=== PATIENT | male | born 1955 | race Hispanic/Latino ===

== ENCOUNTER 2022-03-13 22:16 | Observation (INO) | payer OTHER ==
[~2022-03-13] VITALS: Ht 180.3 cm; Wt 94.6 kg
[2022-03-13] MEDS ORDERED: ACETAMINOPHEN 500 MG TABLET ONE (22:34)
[2022-03-13] MEDS ORDERED: ACETAMINOPHEN 325 MG TAB PO ONE (23:00)
[2022-03-13 23:24] LABS: BASOPHILS % (AUTO) 0.3 % (0.0-5.0); EOSINOPHILS % (AUTO) 0.7 % (0.0-8.0); HEMATOCRIT 38.9 % (42-54); LYMPHOCYTES % (AUTO) 13.9 % (21.0-51.0); MEAN CORPUSCULAR HGB CONC 33.7 g/dL (32.0-36.0); MEAN CORPUSCULAR VOLUME 86.1 fL (79-99); NEUTROPHILS % (AUTO) 71.8 % (40.0-77.0); PLATELET COUNT (AUTO) 136 K/uL (130-400); RED BLOOD CELL COUNT(AUTO) 4.52 MIL/uL (4.50-6.20); RED CELL DISTRIBUTION WIDTH 12.8 % (11.0-15.5); WHITE BLOOD COUNT (AUTO) 9.2 K/uL (4.8-10.8)
[2022-03-13] MEDS ORDERED: BENZONATATE 100 MG CAPSULE PO ONE (23:30)
[2022-03-13] MEDS ORDERED: SOLU-MEDROL 125MG VIAL IVP ONE (23:30)
[2022-03-13] MEDS ORDERED: IPRATROPIUM/ALBUTEROL SULFATE 3 ML SOLUTION IH ONE (23:30)
[2022-03-13 23:35] LABS: POTASSIUM 3.8 mmol/L (3.5-5.1)
[2022-03-13 23:41] LABS: ALBUMIN 3.2 g/dL (3.5-5.0); MAGNESIUM 1.8 mg/dL (1.80-2.40); TOTAL PROTEIN, SERUM 7.1 g/dL (6.0-8.3)
[2022-03-14] MEDS ORDERED: MAGNESIUM 2GM PREMIX 50ML 50 ML IV PRN (02:00)
[2022-03-14] MEDS ORDERED: DEXTROSE 50%-WATER 50 ML DISP.SYRIN IV PRN (02:00)
[2022-03-14] MEDS ORDERED: POTASSIUM CHLORIDE 20MEQ/100ML 100 ML IV PRN (02:00)
[2022-03-14] MEDS ORDERED: GLUCAGON 1MG KIT 1 MG ML IM PRN (02:00)
[2022-03-14] MEDS ORDERED: POTASSIUM CHLORIDE 10% ELIXIR 20 MEQ/15 ML UDCUP PO PRN (02:00)
[2022-03-14] MEDS ORDERED: LIDOCAINE HCL-MPF 1% 2ML VIAL IV PRN (02:00)
[2022-03-14] MEDS ORDERED: FUROSEMIDE 40MG VIAL IV STA (02:03)
[2022-03-14 03:20] VITALS: BP 114/73
[2022-03-14] MEDS ORDERED: ONDANSETRON 4MG INJ IVP PRN (03:30)
[2022-03-14] MEDS ORDERED: DOCUSATE SODIUM 100 MG CAP PO PRN (03:30)
[2022-03-14] MEDS ORDERED: TEMAZEPAM 15 MG CAPSULE PO PRN (03:30)
[2022-03-14] MEDS ORDERED: LACTULOSE 20 GM/30 ML UDCUP PO PRN (03:30)
[2022-03-14] MEDS ORDERED: CLONIDINE HCL 0.1 MG TABLET PO PRN (03:30)
[2022-03-14] MEDS ORDERED: ALBUTEROL 0.083% 2.5 MG/3 ML INH IH PRN (03:30)
[2022-03-14] MEDS ORDERED: ACETAMINOPHEN 325 MG TAB PO PRN (03:30)
[2022-03-14] MEDS ORDERED: ACETAMINOPHEN 650 MG SUPPOSITORY RC PRN (03:30)
[2022-03-14] MEDS ORDERED: LABETALOL 20MG SYG IV PRN (03:30)
[2022-03-14] MEDS ORDERED: HYDRALAZINE 20MG/ML VIAL IV PRN (03:30)
[2022-03-14] MEDS: DOXYCYCLINE 100MG+NS 250ML IV SCH ×3 (04:21→19:27)
[2022-03-14] MEDS: CEFTRIAXONE 1G VIAL IVP SCH ×2 (04:21→05:31)
[2022-03-14] MEDS ORDERED: METOPROLOL SUCCINATE 50 MG TAB.SR.24H PO ONE (05:00)
[2022-03-14] MEDS ORDERED: ROSU5TAB12 PO (05:26)
[2022-03-14] MEDS ORDERED: ALEN35TA53 PO (05:26)
[2022-03-14] MEDS ORDERED: APIX5TAB PO (05:26)
[2022-03-14] MEDS ORDERED: METO-408 PO (05:26)
[2022-03-14] MEDS ORDERED: DILT-116 PO (05:26)
[2022-03-14] MEDS: BENZONATATE 100 MG CAPSULE PO SCH ×3 (05:59→19:26)
[2022-03-14] MEDS: INSULIN HUMULIN R 100 UNIT/ML 3ML SQ SCH ×3 (06:06→19:33)
[2022-03-14 06:13] LABS: BASOPHILS % (AUTO) 0.1 % (0.0-5.0); HEMATOCRIT 40.5 % (42-54); LYMPHOCYTES % (AUTO) 8.4 % (21.0-51.0); MEAN CORPUSCULAR HEMOGLOBIN 28.9 pg (27.0-33.0); MEAN CORPUSCULAR HGB CONC 32.8 g/dL (32.0-36.0); MONOCYTES % (AUTO) 1.6 % (3.0-13.0); NEUTROPHILS % (AUTO) 89.3 % (40.0-77.0); PLATELET COUNT (AUTO) 116 K/uL (130-400); RED CELL DISTRIBUTION WIDTH 12.8 % (11.0-15.5); WHITE BLOOD COUNT (AUTO) 8.2 K/uL (4.8-10.8)
[2022-03-14 06:30] LABS: HEMOGLOBIN A1C 6.5 % (4.0-6.0)
[2022-03-14 06:47] LABS: ALBUMIN 3.4 g/dL (3.5-5.0); CREATININE 1.1 mg/dL (0.5-1.5); POTASSIUM 4.1 mmol/L (3.5-5.1); THYROID STIMULATING HORMONE 0.75 uIU/mL (0.36-3.74); TOTAL PROTEIN, SERUM 7.5 g/dL (6.0-8.3)
[2022-03-14] MEDS: IPRATROPIUM 0.5 MG/2.5 ML INH IH SCH ×4 (06:56→23:05)
[2022-03-14 08:00] VITALS: BP 129/86
[2022-03-14] MEDS: GUAIFENESIN-DM 200/20 MG 10 ML PO PRN ×2 (08:00→14:26)
[2022-03-14] MEDS: DILTIAZEM 180MG SR CAP PO SCH (08:01)
[2022-03-14] MEDS: APIXABAN 5 MG TABLET PO SCH ×2 (08:02→19:27)
[2022-03-14 12:00] VITALS: BP 130/76
[2022-03-14 16:00] VITALS: BP 124/85
[2022-03-14] MEDS ORDERED: FUROSEMIDE 40MG VIAL IV ONE (18:30)
[2022-03-14] MEDS ORDERED: ATORVASTATIN 40 MG TABLET ONE (19:22)
[2022-03-14] MEDS: ATORVASTATIN 40 MG TABLET PO SCH (19:27)
[2022-03-14 20:19] VITALS: BP 115/76
[2022-03-14] MEDS ORDERED: FUROSEMIDE 40MG VIAL IV SCH (21:00)
[2022-03-14 23:43] VITALS: BP 142/50
[2022-03-15] MEDS ORDERED: METOPROLOL SUCCINATE 50 MG TAB.SR.24H PO STA (02:45)
[2022-03-15] MEDS ORDERED: METOPROLOL SUCCINATE 50 MG TAB.SR.24H PO ONE (02:51)
[2022-03-15] MEDS: GUAIFENESIN-DM 200/20 MG 10 ML PO PRN (02:53)
[2022-03-15 05:11] LABS: BASOPHILS % (AUTO) 0.1 % (0.0-5.0); HEMATOCRIT 39.3 % (42-54); LYMPHOCYTES % (AUTO) 7.7 % (21.0-51.0); MEAN CORPUSCULAR HEMOGLOBIN 28.6 pg (27.0-33.0); MEAN CORPUSCULAR HGB CONC 33.6 g/dL (32.0-36.0); MEAN CORPUSCULAR VOLUME 85.2 fL (79-99); MONOCYTES % (AUTO) 6.8 % (3.0-13.0); NEUTROPHILS % (AUTO) 84.6 % (40.0-77.0); PLATELET COUNT (AUTO) 139 K/uL (130-400); RED BLOOD CELL COUNT(AUTO) 4.61 MIL/uL (4.50-6.20); RED CELL DISTRIBUTION WIDTH 12.4 % (11.0-15.5); WHITE BLOOD COUNT (AUTO) 14.3 K/uL (4.8-10.8)
[2022-03-15] MEDS: BENZONATATE 100 MG CAPSULE PO SCH ×3 (05:33→19:26)
[2022-03-15 05:35] LABS: CREATININE 1.2 mg/dL (0.5-1.5); PHOSPHORUS 4.2 mg/dL (2.5-4.9); POTASSIUM 3.7 mmol/L (3.5-5.1)
[2022-03-15] MEDS: INSULIN HUMULIN R 100 UNIT/ML 3ML SQ SCH ×4 (05:38→20:06)
[2022-03-15] MEDS: FUROSEMIDE 40MG VIAL IV SCH ×2 (06:32→16:46)
[2022-03-15] MEDS: IPRATROPIUM 0.5 MG/2.5 ML INH IH SCH ×4 (06:44→23:18)
[2022-03-15] MEDS ORDERED: LEVOFLOXACIN 500 MG/D5W 100 ML 100 ML IV SCH (07:30)
[2022-03-15] MEDS: DOXYCYCLINE 100MG+NS 250ML IV SCH ×2 (07:48→19:26)
[2022-03-15] MEDS: DILTIAZEM 180MG SR CAP PO SCH (07:50)
[2022-03-15] MEDS: APIXABAN 5 MG TABLET PO SCH ×2 (07:50→19:26)
[2022-03-15 07:56] VITALS: BP 137/84
[2022-03-15] MEDS ORDERED: CEFTRIAXONE 1G VIAL IVP SCH (09:00)
[2022-03-15 11:57] VITALS: BP 135/78
[2022-03-15] MEDS ORDERED: GABAPENTIN 100 MG CAPSULE ONE ×2 (14:05→19:22)
[2022-03-15 16:00] VITALS: BP 120/91
[2022-03-15] MEDS: MEROPENEM 1 GM VIAL IVPB SCH ×2 (16:47→23:49)
[2022-03-15] MEDS ORDERED: GUAIFENESIN 600 MG TABLET.ER PO PRN (18:00)
[2022-03-15] MEDS: GABAPENTIN 100 MG CAPSULE PO SCH (19:26)
[2022-03-15] MEDS: METOPROLOL SUCCINATE 50 MG TAB.SR.24H PO SCH ×2 (19:26→19:27)
[2022-03-15] MEDS: ATORVASTATIN 40 MG TABLET PO SCH (19:26)
[2022-03-15 20:25] VITALS: BP 98/56
[2022-03-16 00:03] VITALS: BP 125/82
[2022-03-16 04:42] LABS: HEMATOCRIT 39.1 % (42-54); MEAN CORPUSCULAR HEMOGLOBIN 28.7 pg (27.0-33.0); MEAN CORPUSCULAR VOLUME 87.1 fL (79-99); RED BLOOD CELL COUNT(AUTO) 4.49 MIL/uL (4.50-6.20); RED CELL DISTRIBUTION WIDTH 12.6 % (11.0-15.5); WHITE BLOOD COUNT (AUTO) 9.6 K/uL (4.8-10.8)
[2022-03-16 04:58] LABS: CREATININE 1.1 mg/dL (0.5-1.5); MAGNESIUM 2.1 mg/dL (1.80-2.40); PHOSPHORUS 3.3 mg/dL (2.5-4.9); POTASSIUM 3.4 mmol/L (3.5-5.1)
[2022-03-16 05:01] VITALS: BP 113/77
[2022-03-16] MEDS: BENZONATATE 100 MG CAPSULE PO SCH ×2 (05:43→15:09)
[2022-03-16] MEDS: KCL 20 MEQ ERTAB PO PRN ×2 (05:43→08:57)
[2022-03-16] MEDS: FUROSEMIDE 40MG VIAL IV SCH (05:43)
[2022-03-16] MEDS: INSULIN HUMULIN R 100 UNIT/ML 3ML SQ SCH ×2 (05:45→11:30)
[2022-03-16] MEDS: IPRATROPIUM 0.5 MG/2.5 ML INH IH SCH ×2 (06:52→11:18)
[2022-03-16 07:34] VITALS: BP 129/63
[2022-03-16 08:53] VITALS: BP 129/63
[2022-03-16] MEDS: APIXABAN 5 MG TABLET PO SCH (08:55)
[2022-03-16] MEDS: GABAPENTIN 100 MG CAPSULE PO SCH (08:55)
[2022-03-16] MEDS: DOXYCYCLINE 100MG+NS 250ML IV SCH (08:56)
[2022-03-16] MEDS: DILTIAZEM 180MG SR CAP PO SCH (08:56)
[2022-03-16] MEDS: MEROPENEM 1 GM VIAL IVPB SCH (08:57)
[2022-03-16 11:11] VITALS: BP 114/63
[2022-03-16] MEDS ORDERED: FURO40TA7 PO (15:19)
[2022-03-16] MEDS ORDERED: AMOX-426 PO (15:20)
[2022-03-16] MEDS ORDERED: SACU1TAB PO (15:58)
== END 2022-03-16 19:15 | disposition home or self-care (01) ==
LOC: EDH 22:16 → EDHIP 03-14 01:44 → 4DH 03-14 03:06
PROVIDERS: ADMIT Internal Medicine Critical Care Medicine; ATTEND Internal Medicine Critical Care Medicine
DX: A41.9 Sepsis, unspecified organism (principal); Z20.822 Contact with and (suspected) exposure to COVID-19; B96.7 Clostridium perfringens [C. perfringens] as the cause of diseases classified elsewhere; J18.9 Pneumonia, unspecified organism; I11.0 Hypertensive heart disease with heart failure; I50.9 Heart failure, unspecified; J06.9 Acute upper respiratory infection, unspecified; R50.9 Fever, unspecified; E80.6 Other disorders of bilirubin metabolism; E87.1 Hypo-osmolality and hyponatremia; E87.6 Hypokalemia; R73.9 Hyperglycemia, unspecified; I48.20 Chronic atrial fibrillation, unspecified; E78.00 Pure hypercholesterolemia, unspecified; R77.8 Other specified abnormalities of plasma proteins; Z79.899 Other long term (current) drug therapy; Z98.890 Other specified postprocedural states; Z79.01 Long term (current) use of anticoagulants
CPT/HCPCS: 36415; 71045; 76700; 80048; 80053; 82948; 83036; 83605; 83735; 83880; 84100; 84145; 84443; 84484; 85025; 85027; 85378; 87040; 87635; 87804; 87880; 93005; 93306; 93356; 94640; 94664; 96365; 96366; 96367; 96368; 96375; 96376; C9803; G0378; J0696; J1815; J1940; J1956; J2185; J2930; J3490

== ENCOUNTER 2022-07-28 07:14 | Observation (INO) | payer OTHER ==
[~2022-07-28] VITALS: Ht 180.3 cm; Wt 89.6 kg
[~2022-07-28 07:14] MED LIST: ALEN35TA53 PO; AMOX-426 PO; APIX5TAB PO; FURO40TA7 PO; METO-408 PO; ROSU5TAB12 PO; SACU1TAB PO
[2022-07-28] MEDS ORDERED: SACU1TAB PO (07:25)
[2022-07-28 07:52] LABS: BASOPHILS % (AUTO) 0.3 % (0.0-5.0); EOSINOPHILS % (AUTO) 0.7 % (0.0-8.0); HEMATOCRIT 41.2 % (42-54); LYMPHOCYTES % (AUTO) 18.4 % (21.0-51.0); MEAN CORPUSCULAR HEMOGLOBIN 28.4 pg (27.0-33.0); MEAN CORPUSCULAR HGB CONC 32.3 g/dL (32.0-36.0); MONOCYTES % (AUTO) 6.7 % (3.0-13.0); NEUTROPHILS % (AUTO) 73.1 % (40.0-77.0); PLATELET COUNT (AUTO) 252 K/uL (130-400); RED BLOOD CELL COUNT(AUTO) 4.68 MIL/uL (4.50-6.20); RED CELL DISTRIBUTION WIDTH 14.3 % (11.0-15.5); WHITE BLOOD COUNT (AUTO) 11.8 K/uL (4.8-10.8)
[2022-07-28 08:05] LABS: ALBUMIN 3.2 g/dL (3.5-5.0); CREATININE 1.2 mg/dL (0.5-1.5); POTASSIUM 3.3 mmol/L (3.5-5.1); TOTAL PROTEIN, SERUM 6.8 g/dL (6.0-8.3)
[2022-07-28 08:51] LABS: B-TYPE NATRIURETIC PEPTIDE 707 pg/mL (0-100)
[2022-07-28] MEDS ORDERED: FUROSEMIDE 40MG VIAL IV SCH (09:30)
[2022-07-28] MEDS ORDERED: METOPROLOL TARTRATE 1 MG/ML 5ML VIAL IV SCH (09:30)
[2022-07-28] MEDS ORDERED: POTASSIUM BICARB/CIT AC 25 MEQ TABLET.EFF PO SCH (09:30)
[2022-07-28] MEDS ORDERED: METOPROLOL TARTRATE 1 MG/ML 5ML VIAL IV ONE ×2 (13:00→14:30)
[2022-07-28] MEDS ORDERED: POTASSIUM CHLORIDE 20MEQ/100ML 100 ML IV PRN (15:00)
[2022-07-28] MEDS ORDERED: MAGNESIUM 2GM PREMIX 50ML 50 ML IV PRN (15:00)
[2022-07-28] MEDS ORDERED: POTASSIUM CHLORIDE 10% ELIXIR 20 MEQ/15 ML UDCUP PO PRN (15:00)
[2022-07-28] MEDS ORDERED: KCL 20 MEQ ERTAB PO PRN (15:00)
[2022-07-28] MEDS ORDERED: LIDOCAINE HCL-MPF 1% 2ML VIAL IV PRN (15:00)
[2022-07-28] MEDS ORDERED: METOPROLOL TARTRATE 1 MG/ML 5ML VIAL IV PRN (15:00)
[2022-07-28 15:30] VITALS: BP 122/93
[2022-07-28] MEDS ORDERED: GLUCAGON 1MG KIT 1 MG ML IM PRN (17:00)
[2022-07-28] MEDS ORDERED: DEXTROSE 50%-WATER 50 ML DISP.SYRIN IV PRN (17:00)
[2022-07-28 18:26] LABS: MAGNESIUM 2.4 mg/dL (1.80-2.40)
[2022-07-28 19:00] VITALS: BP 127/81
[2022-07-28 19:20] VITALS: BP 101/50
[2022-07-28 20:20] VITALS: BP 111/62
[2022-07-28] MEDS: FAMOTIDINE 20MG VIAL IV SCH (20:37)
[2022-07-28] MEDS: APIXABAN 5 MG TABLET PO SCH (20:37)
[2022-07-28] MEDS: SACUBITRIL/VALSARTAN 1 EACH TABLET PO SCH (20:37)
[2022-07-28] MEDS ORDERED: METOPROLOL TARTRATE 25 MG TAB PO SCH ×2 (21:00)
[2022-07-28] MEDS ORDERED: FUROSEMIDE 40MG VIAL IVP SCH (21:00)
[2022-07-28] MEDS ORDERED: INSULIN HUMULIN R 100 UNIT/ML 3ML SQ SCH (21:00)
[2022-07-29] VITALS: BP 102/58
[2022-07-29 03:00] VITALS: BP 114/56
[2022-07-29 04:22] LABS: CREATININE 1.3 mg/dL (0.5-1.5); POTASSIUM 3.7 mmol/L (3.5-5.1)
[2022-07-29] MEDS ORDERED: METO-391 PO (06:55)
[2022-07-29] MEDS ORDERED: FURO40TA5 PO (06:55)
[2022-07-29 07:43] LABS: BASOPHILS % (AUTO) 0.5 % (0.0-5.0); EOSINOPHILS % (AUTO) 0.9 % (0.0-8.0); HEMATOCRIT 43.2 % (42-54); LYMPHOCYTES % (AUTO) 18.8 % (21.0-51.0); MEAN CORPUSCULAR HEMOGLOBIN 28.5 pg (27.0-33.0); MEAN CORPUSCULAR HGB CONC 32.4 g/dL (32.0-36.0); MONOCYTES % (AUTO) 8.5 % (3.0-13.0); NEUTROPHILS % (AUTO) 70.4 % (40.0-77.0); PLATELET COUNT (AUTO) 254 K/uL (130-400); RED BLOOD CELL COUNT(AUTO) 4.91 MIL/uL (4.50-6.20); RED CELL DISTRIBUTION WIDTH 14.4 % (11.0-15.5); WHITE BLOOD COUNT (AUTO) 9.8 K/uL (4.8-10.8)
[2022-07-29 08:00] VITALS: BP 131/82
[2022-07-29 08:41] LABS: ALBUMIN 3.2 g/dL (3.5-5.0)
[2022-07-29] MEDS ORDERED: FUROSEMIDE 40 MG TABLET PO SCH (09:00)
[2022-07-29] MEDS ORDERED: NON-FORMULARY MEDICATION 1 EACH (Rosuvastatin Calcium 1 TAB) PO SCH (09:00)
[2022-07-29] MEDS ORDERED: METOPROLOL SUCCINATE 25 MG TAB.SR.24H PO SCH (09:00)
[2022-07-29] MEDS ORDERED: EMPAGLIFLOZIN 10MG TABLET PO SCH (09:00)
[2022-07-29] MEDS ORDERED: ROSUVASTATIN 5 MG PO SCH (09:00)
[2022-07-29] MEDS ORDERED: SPIRONOLACTONE 25 MG TAB PO SCH (09:00)
[2022-07-29] MEDS: APIXABAN 5 MG TABLET PO SCH (10:47)
[2022-07-29] MEDS: SACUBITRIL/VALSARTAN 1 EACH TABLET PO SCH (10:47)
[2022-07-29] MEDS: FAMOTIDINE 20MG VIAL IV SCH (10:54)
[2022-07-29] MEDS ORDERED: GUAIFENESIN-CODEINE 5 ML SYRUP PO ONE (11:30)
== END 2022-07-29 11:45 | disposition still patient (30) ==
LOC: EDH 07:14 → EDHIP 14:47 → INTOOBSV 14:47 → 2DH 16:13
PROVIDERS: ADMIT Hospitalist; ATTEND Hospitalist
DX: I48.20 Chronic atrial fibrillation, unspecified (principal); Z20.822 Contact with and (suspected) exposure to COVID-19; E87.6 Hypokalemia; I11.0 Hypertensive heart disease with heart failure; I50.22 Chronic systolic (congestive) heart failure; N28.9 Disorder of kidney and ureter, unspecified; E11.9 Type 2 diabetes mellitus without complications; E78.00 Pure hypercholesterolemia, unspecified; I42.0 Dilated cardiomyopathy; Z79.01 Long term (current) use of anticoagulants; Z79.84 Long term (current) use of oral hypoglycemic drugs; Z79.899 Other long term (current) drug therapy; Z98.61 Coronary angioplasty status; Z98.890 Other specified postprocedural states
CPT/HCPCS: 96374; 96376 ×2; 96375; 99285; 83735 ×2; 84484; 84132; 80053 ×2; 83880 ×2; 85025 ×2; 82948 ×3; 36415 ×2; 87635; 71045; 93005 ×2; 94760 ×2; 93306; 93356; G0378 ×21; J3490 ×7; J1940 ×2

== ENCOUNTER 2022-08-23 13:42 | Emergency (ER) | payer MEDICARE, OTHER ==
[~2022-08-23] VITALS: Ht 180.3 cm; Wt 86.2 kg
[~2022-08-23 13:42] MED LIST changes: -ALEN35TA53 PO; -AMOX-426 PO; +FURO40TA5 PO; -FURO40TA7 PO; +METO-391 PO; -METO-408 PO
[2022-08-23] MEDS ORDERED: FURO40TA5 PO (14:08)
[2022-08-23] MEDS ORDERED: AMIO200T68 PO (14:08)
[2022-08-23] MEDS ORDERED: APIX5TAB PO (14:08)
[2022-08-23] MEDS ORDERED: METO-391 PO (14:08)
[2022-08-23] MEDS ORDERED: SACU1TAB PO (14:08)
[2022-08-23 14:15] VITALS: BP 149/69
== END 2022-08-23 14:36 | disposition home or self-care (01) ==
LOC: EDH 13:42
DX: I10 Essential (primary) hypertension (principal); Z76.0 Encounter for issue of repeat prescription; E78.00 Pure hypercholesterolemia, unspecified; Z79.899 Other long term (current) drug therapy; Z98.890 Other specified postprocedural states